=== PATIENT | female | born 1985 | race Caucasian/White ===

== ENCOUNTER 2016-10-25 16:04 | Emergency (ER) | payer SELFPAY ==
--- NOTE | 2016-10-25 17:24 | EDM.PDOC ---
[id number] 4d LT SIDE OF HEAD HURTS Time Seen by Provider: 10/25/16 16:34 Source of Information: Reports: Patient History Limitations: Reports: No Limitations - History of Present Illness INITIAL COMMENTS - FREE TEXT/NARRATIVE: History of present illness: []Patient complains of left ear pain, sore throat, fevers, chills and body aches. She denies having any exposures, nausea, vomiting, diarrhea or belly pain. Review of systems: As per history of present illness and below otherwise all systems reviewed and negative. Past medical history: As per history of present illness and as reviewed below otherwise noncontributory. Surgical history: As per history of present illness and as reviewed below otherwise noncontributory. Social history: No reported history of drug or alcohol abuse. Family history: As per history of present illness and as reviewed below otherwise noncontributory. Physical exam: General: Well developed, well nourished in NAD HEENT: Atraumatic, normocephalic, pupils reactive, negative for conjunctival pallor or scleral icterus, mucous membranes moist, throat erythematous and blotchy without exudate or edema, neck supple, nontender, trachea midline. No stridor, no adenopathy Lungs: Clear to auscultation, breath sounds equal bilaterally, chest nontender. Heart: S1S2, regular, negative for clicks, rubs, or JVD. Abdomen: Soft, nondistended, nontender. Negative for masses or hepatosplenomegaly. Negative for costovertebral tenderness. Pelvis: Stable nontender. Genitourinary: Deferred. Rectal: Deferred. Extremities: Atraumatic, negative for cords or calf pain. Neurovascular unremarkable. Neuro: Awake, alert, oriented. Cranial nerves II through XII unremarkable. Cerebellum unremarkable. Motor and sensory unremarkable throughout. Exam nonfocal. Diagnostics: []Rapid strep negative Therapeutics: []Declined pain meds Impression: []Viral pharyngitis Plan: []Motrin, Tylenol, salt water gargles follow-up with PMD return if any symptoms change or worsen Definitive disposition and diagnosis as appropriate pending reevaluation and review of above. Left Head Pain Score (Numeric/FACES): 8 - Related Data Allergies Allergy/AdvReac Type Severity Reaction Status Date / Time No Known Allergies Allergy Verified 10/25/16 16:55 Home Meds: Home Meds . [No Known Home Meds] 10/25/16 [History] Past Medical History - Infectious Disease History Infectious Disease History: Reports: Chicken Pox - Past Surgical History HEENT Surgical History: Reports: Tonsillectomy Other Musculoskeletal Surgeries/Procedures:: R foot surgery, R arm fx Social & Family History - Family History Family Medical History: Noncontributory - Tobacco Use Smoking Status *Q: Current Every Day Smoker Years of Tobacco use: 10 Packs/Tins Daily: 0.5 - Caffeine Use Caffeine Use: Reports: Coffee - Recreational Drug Use Recreational Drug Use: No ED ROS ENT - Review of Systems Review Of Systems: See Below (See history of present illness) ED EXAM, ENT - Physical Exam Exam: See Below (See history of present illness) Course - Vital Signs Last Recorded V/S: Last Vital Signs Temp 36.6 C 10/25/16 16:56 Pulse 65 10/25/16 17:31 Resp 16 10/25/16 16:56 BP 143/84 H 10/25/16 17:31 Pulse Ox 97 10/25/16 17:31 - Orders/Labs/Meds Orders: Active Orders 24 hr Category Date Time Status CULTURE STREP A CONFIRMATION [RM] Stat Lab 10/25/16 17:02 Results STREP SCRN A RAPID W CULT CONF [RM] Stat Lab 10/25/16 17:02 Results Departure - Departure Time of Disposition: 17:23 Disposition: Home, Self-Care 01 Condition: Good Clinical Impression: Viral pharyngitis - Discharge Information Instructions: Pharyngitis, [id number] Referrals: PCP,None [Primary Care Provider] - Forms: ED Department Discharge Additional Instructions: The following information is given to patients seen in the emergency department who are being discharged to home. This information is to outline your options for follow-up care. We provide all patients seen in our emergency department with a follow-up referral. The need for follow-up, as well as the timing and circumstances, are variable depending upon the specifics of your emergency department visit. If you don't have a primary care physician on staff, we will provide you with a referral. We always advise you to contact your personal physician following an emergency department visit to inform them of the circumstance of the visit and for follow-up with them and/or the need for any referrals to a consulting specialist. The emergency department will also refer you to a specialist when appropriate. This referral assures that you have the opportunity for follow-up care with a specialist. All of these measure are taken in an effort to provide you with optimal care, which includes your follow-up. Under all circumstances we always encourage you to contact your private physician who remains a resource for coordinating your care. When calling for follow-up care, please make the office aware that this follow-up is from your recent emergency room visit. If for any reason you are refused follow-up, please contact the [facility] Emergency Department at and asked to speak to the emergency department charge nurse. Alternate Tylenol Motrin for pain, salt water gargles for numbing sprays that are [id number] for comfort. Follow-up with PMD [facility] [address] [place] [id number] - My Orders Last 24 Hours: My Active Orders 10/25/16 17:02 CULTURE STREP A CONFIRMATION [RM] Stat STREP SCRN A RAPID W CULT CONF [RM] Stat - Assessment/Plan Last 24 Hours: My Active Orders 10/25/16 17:02 CULTURE STREP A CONFIRMATION [RM] Stat STREP SCRN A RAPID W CULT CONF [RM] Stat
[2016-10-25 17:32] VITALS: BP 143/84
== END 2016-10-25 17:32 | disposition home or self-care (01) ==
LOC: MW.ED 16:04
DX: J02.8 Acute pharyngitis due to other specified organisms (principal); B97.89 Other viral agents as the cause of diseases classified elsewhere; F17.210 Nicotine dependence, cigarettes, uncomplicated; Z98.890 Other specified postprocedural states
CPT/HCPCS: 87081; 87880; 99282; 99283

== ENCOUNTER 2016-12-07 09:27 | Emergency (ER) | payer SELFPAY ==
--- NOTE | 2016-12-07 10:44 | EDM.PDOC ---
ED HPI GENERAL MEDICAL PROBLEM - General Chief Complaint: Skin Complaint Stated Complaint: SPIDER BITE Time Seen by Provider: 12/07/16 10:20 Source of Information: Reports: Patient History Limitations: Reports: No Limitations - History of Present Illness INITIAL COMMENTS - FREE TEXT/NARRATIVE: HISTORY AND PHYSICAL: History of present illness: [Patient comes to the emergency room complaining of pain redness and swelling to her left breast for the past 4 days. Believes that she was bit by a spider as she has recently been working in her basement preparing to move. Her basement has a lot of spiders per her report. Yesterday while in the shower the affected area opened up and drained quite a bit of yellow bloody purulent discharge. Since then the area has developed a central area of blackened discoloration. She felt fatigued and feverish one day prior to discovering the area to her left breast. She did note to bite mendez to the center of the lesion prior to the swelling and drainage. She has not had any fever or chills, muscle aches or joint pain, nausea or vomiting other than stated above. She does not have a local PCP.] Review of systems: As per history of present illness and below otherwise all systems reviewed and negative. Past medical history: As per history of present illness and as reviewed below otherwise noncontributory. Surgical history: As per history of present illness and as reviewed below otherwise noncontributory. Social history: No reported history of drug or alcohol abuse. Family history: As per history of present illness and as reviewed below otherwise noncontributory. Physical exam: HEENT: Atraumatic, normocephalic. Lymph: No anterior or posterior cervical lymphadenopathy. No axillary tenderness or note enlargement is appreciated. Left breast shows 10 cm x 6 cm erythema, 4.5 centimeter by 3 cm area of peeling skin and mild swelling, and blackened skin to the center measures 2 cm x 1 cm. Consistent with necrosis Lungs: Clear to auscultation, breath sounds equal bilaterally., Heart: S1S2, regular rate and rhythm. Neuro: Awake, alert, oriented. Motor and sensory unremarkable throughout. Exam nonfocal. Therapeutics: [Rocephin 1 g IM] Impression: [Spider bite] Plan: [Rocephin 1 g is given IM in the ER, Rx is written for Bactrim DS No. 20 sig one by mouth twice a day. Stressed to her the importance of follow-up with a local PCP. She is given referral for [facility] clinic. Strict return precautions are reviewed with the patient. She is in agreement with today's plan. All questions are answered and concerns are addressed.] Definitive disposition and diagnosis as appropriate pending reevaluation and review of above. - Related Data Allergies Allergy/AdvReac Type Severity Reaction Status Date / Time No Known Allergies Allergy Verified 10/25/16 16:55 Home Meds: Home Meds . [No Known Home Meds] 10/25/16 [History] Past Medical History - Past Health History Medical/Surgical History: Denies Medical/Surgical History - Infectious Disease History Infectious Disease History: Reports: Chicken Pox - Past Surgical History HEENT Surgical History: Reports: Tonsillectomy Other Musculoskeletal Surgeries/Procedures:: R foot surgery, R arm fx Social & Family History - Family History Family Medical History: Noncontributory - Tobacco Use Smoking Status *Q: Current Every Day Smoker Years of Tobacco use: 10 Packs/Tins Daily: 0.5 - Caffeine Use Caffeine Use: Reports: Coffee, Soda, Tea - Recreational Drug Use Recreational Drug Use: No ED ROS GENERAL - Review of Systems Review Of Systems: ROS reveals no pertinent complaints other than HPI. ED EXAM, SKIN/RASH Exam: See Below Course - Vital Signs Last Recorded V/S: Last Vital Signs Temp 98.4 F 12/07/16 09:45 Pulse 96 12/07/16 09:45 Resp 18 12/07/16 09:45 BP 121/64 12/07/16 09:45 Pulse Ox 97 12/07/16 09:45 - Orders/Labs/Meds Meds: Medications Discontinued Medications Generic Name Dose Route Start Last Admin Trade Name Cehrry PRN Reason Stop Dose Admin Ceftriaxone Sodium 1,000 mg/ 4 mls @ 4 mls/sec 12/07/16 11:06 12/07/16 11:24 Lidocaine HCl IM 12/07/16 11:07 4 mls/sec ONETIME ONE Administration Departure - Departure Time of Disposition: 11:20 Disposition: Home, Self-Care 01 Condition: Good Clinical Impression: Spider bite - Discharge Information Referrals: PCP,None [Primary Care Provider] - Forms: ED Department Discharge Additional Instructions: The following information is given to patients seen in the emergency department who are being discharged to home. This information is to outline your options for follow-up care. We provide all patients seen in our emergency department with a follow-up referral. The need for follow-up, as well as the timing and circumstances, are variable depending upon the specifics of your emergency department visit. If you don't have a primary care physician on staff, we will provide you with a referral. We always advise you to contact your personal physician following an emergency department visit to inform them of the circumstance of the visit and for follow-up with them and/or the need for any referrals to a consulting specialist. The emergency department will also refer you to a specialist when appropriate. This referral assures that you have the opportunity for follow-up care with a specialist. All of these measure are taken in an effort to provide you with optimal care, which includes your follow-up. Under all circumstances we always encourage you to contact your private physician who remains a resource for coordinating your care. When calling for follow-up care, please make the office aware that this follow-up is from your recent emergency room visit. If for any reason you are refused follow-up, please contact the [facility] emergency department at and asked to speak to the emergency department charge nurse. [facility] [address] [place] [id number] Follow-up with your primary care provider or the clinic listed above in 48-72 hours. Take antibiotics as prescribed. Return to the ER as needed as discussed.
[2016-12-07] MEDS ORDERED: cefTRIAXone 1,000 MG in Lidocaine 1% 4 ML IM ONE (11:06)
[2016-12-07 11:43] VITALS: BP 111/71
== END 2016-12-07 11:43 | disposition home or self-care (01) ==
LOC: MW.ED 09:27
DX: S20.162A Insect bite (nonvenomous) of breast, left breast, initial encounter (principal); F17.210 Nicotine dependence, cigarettes, uncomplicated; Z98.890 Other specified postprocedural states; W57.XXXA Bitten or stung by nonvenomous insect and other nonvenomous arthropods, initial encounter
CPT/HCPCS: 96372; 99282; J0696